=== PATIENT | male | born 1975 | race African-American/Black ===

== ENCOUNTER 2017-01-28 08:11 | Emergency (ER) | payer SELFPAY ==
[2017-01-28] MEDS ORDERED: Ibuprofen 800 MG TAB ONE (09:15)
== END 2017-01-28 09:18 | disposition home or self-care (01) ==
LOC: NAV ERS 08:11
DX: B34.9 Viral infection, unspecified (principal); I10 Essential (primary) hypertension
CPT/HCPCS: 99283

== ENCOUNTER 2018-05-21 14:25 | Emergency (ER) | payer SELFPAY ==
--- NOTE | 2018-05-21 15:11 | RAD ---
LEFT HAND 3 VIEWS: Date: 05/21/18 HISTORY: Injury, left hand pain. FINDINGS/IMPRESSION: No acute fracture or dislocation is identified. POS: [facility]
== END 2018-05-21 15:05 | disposition home or self-care (01) ==
LOC: NAV ERS 14:25
DX: S60.222A Contusion of left hand, initial encounter (principal); I10 Essential (primary) hypertension; W55.12XA Struck by horse, initial encounter

== ENCOUNTER 2021-09-09 17:43 | Emergency (ER) | payer SELFPAY | END 2021-09-09 18:40 | disposition home or self-care (01) | LOC: NAV ERS 17:43 | DX: M54.2 Cervicalgia (principal); M25.512 Pain in left shoulder; I10 Essential (primary) hypertension | CPT/HCPCS: 99281 ==

== ENCOUNTER 2022-10-22 09:38 | Emergency (ER) | payer SELFPAY ==
[2022-10-22] MEDS ORDERED: Azithromycin 250 MG TAB ONE (10:17)
[2022-10-22] MEDS ORDERED: cefTRIAXone\\ROCEPHIN 250 MG VIAL ONE (10:17)
[2022-10-22 10:26] LABS: Bilirubin Negative (Negative); Blood, Urine Small (Negative); Clarity Clear (Clear); Glucose, Urine (Dipstick) 100 mg/dL (Negative); Ketone, Urine Negative (Negative); Leukocyte Trace (Negative); Nitrite Negative (Negative); Protein, Urine (Dipstick) > or equal to 300 mg/dL (Neg-Trace); Urobilinogen 0.2 mg/dL (Less than 2)
[2022-10-22 10:28] LABS: Bacteria/HPF None Seen HPF (None Seen); RBC/HPF 0-3 HPF (0-3); Squamous Epithelial 0-3 HPF (0-3); WBC/HPF 0-3 HPF (0-3)
[2022-10-23 12:19] LABS: Chlam.trachomatis by PCR,Urine Not Detected (NotDetected)
== END 2022-10-22 11:00 | disposition home or self-care (01) ==
LOC: NAV ERS 09:38
DX: N34.2 Other urethritis (principal); I10 Essential (primary) hypertension
CPT/HCPCS: 81003; 81015; 87491; 87591; 96372; 99283; J0696